=== PATIENT | female | born 1995 | race Caucasian/White ===

== ENCOUNTER 2017-04-23 02:53 | Emergency (ER) | payer BC ==
[2017-04-23 03:01] VITALS: TEMP 97.5
--- NOTE | 2017-04-23 03:05 | EDPHY ---
H & P Stated Complaint: ETOH overdose. HPI/ROS: HPI CHIEF COMPLAINT: Alcohol Intoxication HISTORY OF PRESENT ILLNESS: This patient 21-year-old female, unknown medical or surgical history she presents emergency room by EMS after she was found in someone else's apartment under the coffee table highly intoxicated with alcohol. She is unable to care for self. She vomited all over herself. Upon arrival to the emergency room she is minimally responsive. She does respond to painful stimuli only. She has dysconjugate gaze on exam. And is highly intoxicated of alcohol. Unclear if there is other comma ingestions. No trauma reported. Patient was found in a residence that she did not belong in under a coffee table on the ground minimally responsive. Past Medical History: Unknown Past Surgical History: Unknown Social History: Unknown Family History: Unknown ROS REVIEW OF SYSTEMS: Limited to patient's clinical state. Exam Constitutional Intoxicated, triage nursing summary reviewed, vital signs reviewed, Sleepy, smells of alcohol Eyes normal conjunctivae and sclera, horizontal beating nystagmus consistent acute alcohol intoxication, otherwise pupils equal and react to light HENT normal inspection, atraumatic, moist mucus membranes, no epistaxis, neck supple/ no meningismus, no raccoon eyes. Respiratory clear to auscultation bilaterally, normal breath sounds, no respiratory distress, no wheezing. Cardiovascular rate normal, regular rhythm, no murmur, no edema, distal pulses normal. Gastrointestinal soft, non-tender, no rebound, no guarding, normal bowel sounds, no distension, no pulsatile mass. Genitourinary no CVA tenderness. Musculoskeletal no midline vertebral tenderness, full range of motion, no calf swelling, no tenderness of extremities, no meningismus, good pulses, neurovascularly intact. Skin pink, warm, & dry, no rash, skin atraumatic. Neurologic sleepy, intoxicated with alcohol,, alert and oriented x 3, AAOx3, moves all 4 extremities equally, motor intact, sensory intact, CN II-XII intact , , normal vision, normal speech. Psychiatric normal mood/affect. Heme/Lymph/Immune no lymphadenopathy. Differential Diagnosis: Includes but is not limited to in a particular order acute alcohol intoxication, alcohol abuse, dehydration, electrolyte abnormality , nausea vomiting from acute alcohol intoxication Medical Decision Making: Plan for this patient IV establishment blood draw, check serum alcohol level, IV fluid bolus 1 L normal saline, CT scan head without contrast rule out significant intracranial bleed. Re-evaluate. Reason for CT scan head without contrast patient is minimally responsive. Unclear if there is trauma. Rule out subdural. Re-evaluation: 0402AM: Serum alcohol 428. 0613AM: Patient re-evaluated this time. Patient ambulatory without any difficulty. She has a stable gait. She is clinically sober now. She will be d /c to the [facility]. She has no focal complaints. I discussed with her how high her alcohol level was not how dangerous this can be. She understands. Return precautions discussed.. Source: Patient - Personal History Current Tetanus/Diphtheria Vaccine: Unsure Current Tetanus Diphtheria and Acellular Pertussis (TDAP): Unsure - Medical/Surgical History Hx Asthma: No Hx Chronic Respiratory Disease: No Hx Diabetes: No Hx Cardiac Disease: No Hx Renal Disease: No Hx Cirrhosis: No Hx Alcoholism: No Hx HIV/AIDS: No Hx Splenectomy or Spleen Trauma: No Other PMH: Unable to obtain. - Social History Smoking Status: Never smoked Constitutional: Initial Vital Signs Temperature (C) 36.4 C 04/23/17 02:51 Heart Rate 78 04/23/17 02:51 Respiratory Rate 14 04/23/17 02:51 Blood Pressure 100/81 H 04/23/17 02:51 O2 Sat (%) 96 04/23/17 02:51 O2 Delivery Mode Nasal Cannula O2 (L/minute) 2 Allergies/Adverse Reactions: Unable to Assess Allergy (Unverified 04/23/17 03:01) Home Medications: Medication Instructions Recorded Unobtainable 04/23/17 Medical Decision Making - Data Points Laboratory Results: Laboratory Results 04/23/17 03:00 04/23/17 03:00 04/23/17 04/23/17 03:00 03:00 WBC 11.01 10^3/uL H 10^3/uL (3.80-9.50) RBC 3.93 10^6/uL L 10^6/uL (4.18-5.33) Hgb 12.6 g/dL g/dL (12.6-16.3) Hct 36.9 % L % (38.0-47.0) MCV 93.9 fL fL (81.5-99.8) MCH 32.1 pg pg (27.9-34.1) MCHC 34.1 g/dL g/dL (32.4-36.7) RDW 12.9 % % (11.5-15.2) Plt Count 281 10^3/uL 10^3/uL (150-400) MPV 9.4 fL fL (8.7-11.7) Neut % (Auto) 69.6 % % (39.3-74.2) Lymph % (Auto) 25.8 % % (15.0-45.0) [place] % (Auto) 3.5 % L % (4.5-13.0) Eos % (Auto) 0.2 % L % (0.6-7.6) Baso % (Auto) 0.4 % % (0.3-1.7) Nucleat RBC Rel Count 0.0 % % (0.0-0.2) Absolute Neuts (auto) 7.67 10^3/uL H 10^3/uL (1.70-6.50) Absolute Lymphs (auto) 2.84 10^3/uL 10^3/uL (1.00-3.00) Absolute Monos (auto) 0.39 10^3/uL 10^3/uL (0.30-0.80) Absolute Eos (auto) 0.02 10^3/uL L 10^3/uL (0.03-0.40) Absolute Basos (auto) 0.04 10^3/uL 10^3/uL (0.02-0.10) Absolute Nucleated RBC 0.00 10^3/uL 10^3/uL (0-0.01) Immature Gran % 0.5 % % (0.0-1.1) Immature Gran # 0.05 10^3/uL 10^3/uL (0.00-0.10) Sodium 145 mEq/L mEq/L (135-145) Potassium 4.0 mEq/L mEq/L (3.5-5.2) Chloride 104 mEq/L mEq/L (97-110) Carbon Dioxide 26 mEq/l mEq/l (22-31) Anion Gap 15 mEq/L mEq/L (8-16) BUN 17 mg/dL mg/dL (7-23) Creatinine 0.8 mg/dL mg/dL (0.6-1.0) Estimated GFR > 60 Glucose 114 mg/dL H mg/dL (70-100) Calcium 9.0 mg/dL mg/dL (8.5-10.4) Ethyl Alcohol 428 mg/dL H* mg/dL (0-10) Medications Given: Discontinued Medications Sodium Chloride (Ns) 1,000 mls @ 0 mls/hr IV EDNOW ONE; Wide Open PRN Reason: Protocol Stop: 04/23/17 03:09 Last Admin: 04/23/17 03:33 Dose: 1,000 mls Ondansetron HCl (Zofran) 4 mg IVP EDNOW ONE Stop: 04/23/17 03:09 Last Admin: 04/23/17 03:36 Dose: 4 mg Departure - Departure Disposition: Home, Routine, Self-Care Clinical Impression: Alcoholic intoxication Qualifiers: Complication of substance-induced condition: uncomplicated Qualified Code(s): F10.920 - Alcohol use, unspecified with intoxication, uncomplicated Condition: Good Instructions: Abuse of Alcohol (ED), Alcohol Intoxication (ED) Referrals: Patient,NotPresent [Primary Care Provider] - As per Instructions
[2017-04-23] MEDS ORDERED: NS 1,000 ML IV ONE (03:08)
[2017-04-23] MEDS ORDERED: ONDANSETRON 4 MG/2 ML VIAL IVP ONE (03:08)
[2017-04-23 03:35] LABS: PLATELET COUNT 281 10^3/uL (150-400)
[2017-04-23 06:37] VITALS: BP 125/84; PULSE 118; RESP 16; O2SAT 96
== END 2017-04-23 06:58 | disposition home or self-care (01) ==
DX: F10.920 Alcohol use, unspecified with intoxication, uncomplicated (principal); E86.9 Volume depletion, unspecified
CPT/HCPCS: 96374; G0480; J2405

== ENCOUNTER 2018-06-04 18:20 | Emergency (ER) | payer BC ==
--- NOTE | 2018-06-04 18:32 | EDPHY ---
H & P Stated Complaint: Painful urination since discovering tampon 5D insertion Time Seen by Provider: 06/04/18 18:30 HPI/ROS: CHIEF COMPLAINT: Dysuria , increased frequency times 48 hr HISTORY OF PRESENT ILLNESS: 21-year-old immunocompetent female the via private vehicle complaining of dysuria, increased frequency for the past 48 hr. She is concerned about possible staphylococcal shock syndrome, noting that she left a tampon in for 5 days, removed yesterday, noted a foul odor when she removed it. She is otherwise feeling well. She denies: Rash, lightheadedness, abdominal pain, back pain, flank pain, nausea, vomiting, flu-like symptoms, myalgias, arthralgias PRIMARY CARE PROVIDER: REVIEW OF SYSTEMS: 10 systems reviewed and negative with the exception of the elements mentioned in the history of present illness PAST MEDICAL & SURGICAL HISTORY: No pertinent medical or surgical history SOCIAL HISTORY: Student PHYSICAL EXAM (Prior to examination, patient consented to physical exam, hands were washed and my usual and customary physical exam procedures followed) 1) GENERAL: Well-developed, well-nourished, alert and oriented. Appears to be in no acute distress. Smiling. Sitting upright. Laughing. 2) HEAD: Normocephalic, atraumatic 3) HEENT: Pupils equal, round, reactive to light bilaterally. Sclera anicteric. Nasopharynx, oropharynx, clear, no lesions. Moist Mucous membranes. 4) NECK: Full range of motion, no meningeal signs. 5) LUNGS: Clear auscultation bilaterally, no wheezes, no rhonchi, no retractions. 6) HEART: Regular rate and rhythm, no murmur, no heave, no gallop. 7) ABDOMEN: No guarding, no rebound, no focal tenderness, negative McBurney's, negative Lang's, negative Rovsing's, negative peritoneal sign 8) MUSCULOSKELETAL: Moving all extremities, no focal areas of tenderness, no obvious trauma. No peripheral edema or discoloration. 9) BACK: No CVA tenderness, no midline vertebral tenderness, no fluctuance, no step-off, no obvious trauma, no visual or palpable abnormality. 10) SKIN: No rash, no petechiae. 11) Psychiatric: Patient is oriented X 3, there is no agitation. DIFFERENTIAL DIAGNOSIS: In no particular order including but not limited to pyelonephritis, cystitis, staphylococcal shock syndrome - Personal History Current Tetanus/Diphtheria Vaccine: Yes - Medical/Surgical History Hx Asthma: No Hx Chronic Respiratory Disease: No Hx Diabetes: No Hx Cardiac Disease: No Hx Renal Disease: No Hx Cirrhosis: No Hx Alcoholism: No Hx HIV/AIDS: No Hx Splenectomy or Spleen Trauma: No Other PMH: none - Social History Smoking Status: Never smoked Constitutional: Initial Vital Signs Temperature (C) 37.0 C 06/04/18 18:28 Heart Rate 79 06/04/18 18:28 Respiratory Rate 16 06/04/18 18:28 Blood Pressure 118/77 06/04/18 18:28 O2 Sat (%) 98 06/04/18 18:28 O2 Delivery Mode Room Air Allergies/Adverse Reactions: No Known Allergies Allergy (Unverified 06/04/18 18:27) Home Medications: Medication Instructions Recorded Cephalexin [Keflex] 500 mg PO TID 7 Days cap 06/04/18 Phenazopyridine HCl [Pyridium] 200 mg PO PC #10 tab 06/04/18 Medical Decision Making ED Course/Re-evaluation: Doubt staphylococcal toxic shock syndrome given her absence of other signs and symptoms which would be consistent with staph toxic shock syndrome. Urinalysis was obtained on this patient which is positive for bacteriuria pyuria. Suspect cystitis. Will initiate antibiotic therapy as well as Pyridium.Patient feels comfortable being discharged. All questions and concerns addressed by myself. Patient given my usual and customary discharge precautions and instructions regarding their clinical impression. Care of patient under supervision of secondary supervising physician Dr Guerin with whom I discussed case. - Data Points Laboratory Results: 06/04/18 06/04/18 19:05 19:05 Urine Color YELLOW Urine Appearance HAZY Urine pH 6.0 (5.0-7.5) Ur Specific [place] 1.023 (1.002-1.030) Urine Protein NEGATIVE (NEGATIVE) Urine Ketones NEGATIVE (NEGATIVE) Urine Blood NEGATIVE (NEGATIVE) Urine Nitrate NEGATIVE (NEGATIVE) Urine Bilirubin NEGATIVE (NEGATIVE) Urine Urobilinogen NEGATIVE EU EU (0.2-1.0) Ur Leukocyte Esterase 2+ H (NEGATIVE) Urine RBC 5-10 /hpf H /hpf (0-3) Urine WBC 50-182 /hpf H /hpf (0-3) Ur Epithelial Cells TRACE /lpf /lpf (NONE-1+) Urine Bacteria TRACE /hpf H /hpf (NONE SEEN) Urine Mucus TRACE /lpf /lpf (NONE-1+) Urine Glucose NEGATIVE (NEGATIVE) Urine Test NEGATIVE Departure - Departure Disposition: Home, Routine, Self-Care Clinical Impression: Urinary tract infection Condition: Good Instructions: Urinary Tract Infection in Women (ED) Additional Instructions: Return to the ER immediately if you experience fevers/chills, flu like symptoms , inability to tolerate oral intake, nausea or vomiting, or any other symptoms that concern you. Referrals: [facility],. [Clinic] - 2-3 days, call for appt. Prescriptions: Cephalexin [Keflex] 500 mg PO TID 7 Days cap Phenazopyridine HCl [Pyridium] 200 mg PO PC #10 tab
[2018-06-04 19:45] VITALS: BP 117/88
== END 2018-06-04 19:44 | disposition home or self-care (01) ==
DX: N39.0 Urinary tract infection, site not specified (principal)